=== PATIENT | male | born 1985 ===

== ENCOUNTER 2025-02-13 19:10 | Emergency (ER) | payer OTHER, SELFPAY ==
[2025-02-13 19:13] VITALS: BP 136/92
[2025-02-13 19:47] VITALS: BMI 27.8
--- NOTE | 2025-02-13 20:53 | ED.GENMED ---
History of Present Illness
General
Chief Complaint: Swelling
Source: patient
Exam Limitations: none
Time Seen by Provider: 02/13/25 20:35
History of Present Illness
History of Present Illness:
Note:
CHIEF COMPLAINT(S)
Right-sided ear pain and swelling.
HISTORY OF PRESENT ILLNESS
The patient is a 39-year-old male presenting with pain and swelling in the right ear. The symptoms began recently, and the patient has not experienced any previous ear infections. He denies fever and has taken acetaminophen with little relief. The
patient does not report any exposure to traumatic noise events but mentions wearing an earpiece at work, although it has not caused previous issues.
SOCIAL HISTORY
The patient consumes alcohol daily and does not use illicit drugs or marijuana. 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
PHYSICAL EXAM
General: Alert, no acute distress.
Skin: Warm, dry.
Head: Normocephalic, atraumatic.
Neck: Supple, trachea midline.
Eyes, Ears, Nose, Mouth, and Throat: Erythema present over the left mastoid; tender to palpation.
Cardiovascular: Normal peripheral perfusion, no edema.
Respiratory: Respirations are non-labored.
Gastrointestinal: Abdomen nondistended.
Back: Normal range of motion, normal alignment.
Musculoskeletal: Normal range of motion, normal strength.
Neurological: Alert and oriented to person, place, time, and situation, no focal neurological deficit observed.
Psychiatric: Cooperative, appropriate mood and affect.
PLAN
The plan includes performing a computed tomography (CT) scan to further evaluate the ear condition. The patient may begin potential antibiotic treatment based on the results and providers discretion.
DIFFERENTIAL DIAGNOSIS
The Differential Diagnosis includes, in no particular order and is not limited to:
1. Otitis media
2. Mastoiditis
3. Cellulitis
4. Otitis externa
5. Foreign body in the ear canal
6. Ear barotrauma
7. Temporal bone fracture
8. Cholesteatoma
9. Eustachian tube dysfunction
10. Perichondritis
CARE-UPDATE
02/13/25 - 22:49
CT scan of facial bones reveals no evidence of mastoiditis or other infection. Notable edema posterior to the left ear indicates cellulitis. Plan to initiate treatment with Keflex.
Disposition:
SUMMARY OF ENCOUNTER
The patient, a 39-year-old male, presented to the emergency department with complaints of right-sided ear pain and swelling. Following a CT scan, findings indicated notable edema posterior to the left ear, consistent with cellulitis. There was no
evidence of mastoiditis or other deep face infections. The examination included an intact tympanic membrane and a normal ear exam. The patient reported utilizing ear protection during shooting range activities and wearing an earpiece at work.
PLAN
Initiate treatment with cephalexin for cellulitis management.
INDEPENDENT REVIEW OF LABS AND INTERPRETATION OF TESTS
My independent interpretation of the CT scan shows no evidence of mastoiditis or other infection, with noted edema posterior to the left ear consistent with cellulitis.
PATIENT EDUCATION AND COUNSELING
The patient was advised on the diagnosis of cellulitis and the importance of following up with primary care for continued management. Return precautions were provided should symptoms worsen.
FOLLOW-UP INSTRUCTIONS
The patient was advised to follow up with their primary care physician and was given return precautions.
MEDICATION RECONCILIATION
Initiate cephalexin for cellulitis as per treatment guidelines.
MEDICAL DECISION MAKING
-Complexity of Data Reviewed: Differential Diagnosis includes otitis media, mastoiditis, cellulitis, otitis externa, foreign body in the ear canal, ear barotrauma, temporal bone fracture, cholesteatoma, eustachian tube dysfunction, and
perichondritis.
-Data:
Category 1
My independent interpretation of the CT scan reveals no evidence of mastoiditis, confirming a diagnosis of cellulitis.
-Risk:
Prescription medication was prescribed: cephalexin for cellulitis management.
DIAGNOSIS
1. Cellulitis left scalp (L03.211)
Phy Exam
Physical Exam
Physical Exam:
.
Course
Orders/Labs/Results
Orders:
Orders
02/13/25 20:49
CT Facial Bones W/o Iv Contras Urgent
Comment:
Reason For Exam: left mastoid swollen, erythematous
IV Insert/Care/Rem.- Treatment PRN
02/13/25 21:08
Basic Metabolic Panel Urgent
CRP [C-Reactive Protein] Urgent
Complete Blood Count/With Diff Urgent
ESR [Erythrocyte Sed Rate] Urgent
02/13/25 22:47
Cephalexin Monohydrate [Keflex] 500 mg PO NOW STA
Abnormal Lab Results
02/13/25
21:08
BUN 21 H mg/dl
(01-15)
02/13/25 21:08
02/13/25 21:08
Vital Signs
Initial and Last Documented VS:
Initial Vital Signs
Temp Pulse Resp BP Pulse Ox
97.6 F 79 16 136/92 100
02/13/25 19:13 02/13/25 19:13 02/13/25 19:13 02/13/25 19:13 02/13/25 19:13
Last Documented Vital Signs
Temp Pulse Resp BP Pulse Ox
97.6 F 79 16 136/92 100
02/13/25 19:13 02/13/25 19:13 02/13/25 19:13 02/13/25 19:13 02/13/25 20:54
*Pulse Oximetry
SaO2: 100
Oxygen Mode of Delivery: Room air
Patient hypoxic: no
*Critical Care Note
Total Time (30-74mins, 75-104mins- exclusive of procedures): Not Applicable
ED Attending Note
-
Portions of this chart may have been created with voice recognition software.� Occasional wrong word or��sound alike� substitutions may have occurred due to the inherent limitations of voice recognition software.
Discharge Plan
Departure
Patient Disposition: Home (Routine Discharge)
Date of Disposition: 02/13/25
Time of Disposition: 22:48
Patient with high blood pressure during this ER visit?: Yes
Condition: Good
Discharge Problem:
Cellulitis of head or scalp
Instructions: Cellulitis (skin infection) in adults - ED (DC), BLOOD PRESSURE
Prescriptions:
New
cephalexin 500 mg capsule
500 mg PO TID 7 Days Qty: 21 0RF
Referrals:
NONE,* [Family Provider, Internal Medicine]
Activity Restrictions/Additional Instructions:
Follow up with primary care in 3-5 days. Return for any concerns.
Interventions
Interventions:
*Risk Screen - Suicide Last Done: 02/13/25 19:13
*General Assessment Last Done: 02/13/25 19:13
*Neglect/Abuse Screening Last Done: 02/13/25 19:13
*ED- Fall Risk Assessment Last Done: 02/13/25 19:13
*ED COVID-19 Vaccine History Last Done: 02/13/25 19:13
*ED Influenza Vaccine History Last Done: 02/13/25 19:13
ED- Cardiac Assessment Last Done: 02/13/25 19:47
ED- Pulmonary Assessment Last Done: 02/13/25 19:47
ED-Skin Assessment Last Done: 02/13/25 19:47
Discharge Date and Time
Print Language: UPPER SORBIAN
[2025-02-13 21:20] LABS: Hematocrit 45.9 % (39.0-52.0); Hemoglobin 15.5 g/dL (13.0-18.0); Mean Corp Hgb Conc. 33.8 g/dL (33.0-37.0); Mean Corpuscular Volume 83.8 fL (80.0-94.0); Nucleated Red Blood Cells % 0 % (-); Platelet Count 244 10^3/uL (130-400); Red Cell Dist. Width 12.4 % (11.5-14.5)
[2025-02-13 21:51] LABS: Blood Urea Nitrogen 21 mg/dl (9-20); Calcium 9.7 mg/dl (8.4-10.2); Carbon Dioxide 25 mmol/L (22-30); Chloride 103 mmol/L (98-107); Estimated Creatinine Clearance 76 ml/min; Glucose 87 mg/dl (70-99); Sodium 139 mmol/L (135-145); eGFR > 60.00
[2025-02-13 22:09] LABS: C-Reactive Protein < 5.00 mg/L (0.0-10.00)
[2025-02-13] MEDS: KEFLEX 500 MG PO (23:08)
== END 2025-02-13 23:17 | disposition home or self-care (01) ==
LOC: EMR 19:10
PROVIDERS: EMERGENCY PHYSICIAN Emergency Medicine
DX: L03.811 Cellulitis of head [any part, except face] (principal)
CPT/HCPCS: 99284; 70486; 80048; 85025; 85652; 86140